=== PATIENT | female | born 1985 | race Native Hawaiian/Other Pacific Islander ===

== ENCOUNTER 2019-02-10 18:04 | Emergency (ER) | payer SELFPAY ==
[2019-02-10 18:19] VITALS: BP 155/92; PULSE 105; TEMP 98.9; BMI 34.9
[2019-02-10] MEDS ORDERED: LIDOCAINE HCL 1%, 10 MG/ML (20ML VIAL) ONE (18:59)
--- NOTE | 2019-02-10 19:33 | PDOC ---
History of Present Illness - General Chief Complaint: Injury Stated Complaint: INJURY Time Seen by Provider: 02/10/19 18:30 History Source: Patient - History of Present Illness Occurred: reports: this afternoon Severity: reports: moderate Pain Location: reports: upper extremity Method of Injury: Yes: direct blow Past History - Past Medical History Allergies/Adverse Reactions: Allergies Allergy/AdvReac Type Severity Reaction Status Date / Time acetaminophen [From Tylenol] Allergy Severe breathing Verified 10/28/13 10:50 problems ibuprofen Allergy Severe breathing Verified 02/10/19 18:20 problems Penicillins Allergy Unknown Verified 02/10/19 18:20 Home Medications: Ambulatory Orders Ciprofloxacin HCl/Dexameth [Ciprodex Otic Suspension] 4 drop AD BID #1 bottle No Home Medications 0 dose .ROUTE UTDICT 10/28/13 COPD: No HTN: Yes (stress induced) - Surgical History Abdominal Surgery: Yes Cholecystectomy: Yes - Suicide/Smoking/Psychosocial Hx Smoking History: Never smoked Review of Systems - Review of Systems Musculoskeletal: Yes: Joint Pain *Physical Exam - Vital Signs Last Vital Signs Temp Pulse Resp BP Pulse Ox 98.9 F 105 H 18 155/92 100 02/10/19 18:16 02/10/19 18:16 02/10/19 18:16 02/10/19 18:16 02/10/19 18:16 - Physical Exam General Appearance: Yes: Appropriately Dressed, Mild Distress HEENT: positive: Normal Voice Neck: positive: Supple Respiratory/Chest: negative: Respiratory Distress Extremity: positive: Other (partial nail avulsion to L 4th digit, no swelling/ deformity or sig ttp to distal phalanx) Integumentary: positive: Dry, Warm Neurologic: positive: Fully Oriented, Alert, Normal Mood/Affect Procedures - Additional Procedures Additional Procedures: other (L 4th fingernail removed s/p digital block w/ ~ 6cc lido with no epi, dressing placed (bacitracin/xeroform/gauze roll)) Medical Decision Making - Medical Decision Making 02/10/19 19:33 33 yo F, no sig hx, here w/ partial nail avulsion s/p finger being slammed in car door today. States pain only located to area of nail See exam Partial nail avulsion Nail removed s/p digital block No finger pain/swelling/deformity to warrant XR at this time Tetanus UTD -dc to wound care instructions -to return as needed *DC/Admit/Observation/Transfer Diagnosis at time of Disposition: Nail avulsion - Discharge Dispostion Disposition: HOME Condition at time of disposition: Good - Referrals - Patient Instructions Printed Discharge Instructions: DI for Nail Avulsion Injury Additional Instructions: You sustained a nail avulsion injury Nails take about 3-6 months to regrow Please folow wound care instructions at home: The digit should be soaked in warm water 24 to 48 hours after the procedure. Before removal of the dressing, patients are instructed to soak their digit in the shower or in a bowl to avoid bleeding and pain when the dressing is removed. A gelatinous film of epithelium may be present over the exposed nail bed and can be gently removed with dilute hydrogen peroxide on a cotton-tipped applicator. The cotton tip should be rolled over the site gently, avoiding rubbing or vigorous attempts at tissue removal. A small amount of petrolatum or antibiotic ointment is placed on the tissue, then it is covered with an adhesive bandage for a simple avulsion or roller gauze if a matricectomy was performed. This dressing change should be repeated daily. The nail bed typically epithelializes within 7 to 10 days. Take motrin for pain as needed Return to ED for signs of infection as discussed in ED - Post Discharge Activity
== END 2019-02-10 19:32 | disposition home or self-care (01) ==
LOC: JERFT 18:04
PROC: 0HDQXZZ Extraction of Finger Nail, External Approach (ICD-10-PCS; principal; 2019-02-10)
DX: S61.305A Unspecified open wound of left ring finger with damage to nail, initial encounter (principal); W23.0XXA Caught, crushed, jammed, or pinched between moving objects, initial encounter; Y93.9 Activity, unspecified; Y92.9 Unspecified place or not applicable; I10 Essential (primary) hypertension; Z88.0 Allergy status to penicillin; Z88.8 Allergy status to other drugs, medicaments and biological substances
CPT/HCPCS: 99281-25

== ENCOUNTER 2019-02-12 17:38 | Emergency (ER) | payer SELFPAY ==
--- NOTE | 2019-02-12 17:40 | PDOC ---
Rapid Medical Evaluation Time Seen by Provider: 02/12/19 17:39 Medical Evaluation: Allergies Allergy/AdvReac Type Severity Reaction Status Date / Time acetaminophen [From Tylenol] Allergy Severe breathing Verified 10/28/13 10:50 problems ibuprofen Allergy Severe breathing Verified 02/10/19 18:20 problems Penicillins Allergy Unknown Verified 02/10/19 18:20 02/12/19 17:39 HPI: L 4th finger nail removal 2 days ago now with pain PE: No gross deficits ORDERS: Nothing Discharge Disposition - Diagnosis Nail avulsion - Referrals - Patient Instructions - Post Discharge Activity
[2019-02-12 17:41] VITALS: BP 155/89; PULSE 83; TEMP 98.1; BMI 34.2
--- NOTE | 2019-02-12 18:26 | PDOC ---
Suture Removal/Wound Check HPI - History of Present Illness Chief Complaint: Injury Stated Complaint: FINGER INJURY Time Seen by Provider: 02/12/19 17:39 [facility] Date of Last ED visit: 02/10/19 - Previous ED Treatment Type of procedure performed on last visit: Yes: Other (nail removal) Tetanus Immunization: Yes: Up to Date - Onset of Previous Treatment Date of Occurence: 02/10/19 Comment:: 02/12/19 18:26 33 yo F returns to fast track for recheck of finger s/p nail removal. Patient slammed her finger in a car door two days ago and was seen her for partial nail avulsion and had fingernail removed and covered with bacitracin/xeroform/gauze. Patient states she has been soaking the finger all day and has been unable to take the dressing off. Digital block performed (verbal consent obtained), dressing removed. Wound covered with bacitracin and band-aid. Advised pt to f/u with specialist for continued monitoring. Past History - Past Medical History Allergies/Adverse Reactions: Allergies Allergy/AdvReac Type Severity Reaction Status Date / Time acetaminophen [From Tylenol] Allergy Severe breathing Verified 02/12/19 17:42 problems ibuprofen Allergy Severe breathing Verified 02/12/19 17:42 problems Penicillins Allergy Unknown Verified 02/12/19 17:42 Home Medications: Ambulatory Orders Ciprofloxacin HCl/Dexameth [Ciprodex Otic Suspension] 4 drop AD BID #1 bottle No Home Medications 0 dose .ROUTE UTDICT 10/28/13 COPD: No HTN: Yes (stress induced) - Surgical History Abdominal Surgery: Yes Cholecystectomy: Yes - Suicide/Smoking/Psychosocial Hx Smoking History: Never smoked Hx Alcohol Use: No Drug/Substance Use Hx: No *Physical Exam - Vital Signs Last Vital Signs Temp Pulse Resp BP Pulse Ox 98.1 F 83 14 155/89 99 02/12/19 17:39 02/12/19 17:39 02/12/19 17:39 02/12/19 17:39 02/12/19 17:39 *DC/Admit/Observation/Transfer Diagnosis at time of Disposition: Nail avulsion - Discharge Dispostion Disposition: HOME Condition at time of disposition: Stable Decision to Admit order: No - Referrals - Patient Instructions Printed Discharge Instructions: DI for Nail Avulsion Injury - Post Discharge Activity
== END 2019-02-12 19:32 | disposition home or self-care (01) ==
LOC: JERFT 17:38
DX: Z48.00 Encounter for change or removal of nonsurgical wound dressing (principal)
CPT/HCPCS: 73140-TC-LT-FY; 99281-25

== ENCOUNTER 2019-05-26 09:47 | Emergency (ER) | payer OTHER ==
[2019-05-26 10:11] VITALS: BP 140/93; PULSE 89; TEMP 97.8
[2019-05-26] MEDS ORDERED: IBUPROFEN 600 MG TABLET (FP) PO ONE (10:31)
--- NOTE | 2019-05-26 11:11 | PDOC ---
History of Present Illness - General Chief Complaint: Respiratory Stated Complaint: DIFFICULTY BREATHING Time Seen by Provider: 05/26/19 10:20 History Source: Patient Exam Limitations: No Limitations Past History - Past Medical History Allergies/Adverse Reactions: Allergies Allergy/AdvReac Type Severity Reaction Status Date / Time acetaminophen [From Tylenol] Allergy Severe breathing Verified 05/26/19 10:06 problems ibuprofen Allergy Severe breathing Verified 05/26/19 10:06 problems Penicillins Allergy Unknown Verified 05/26/19 10:06 Home Medications: Ambulatory Orders D-Methorphan/PE/Acetaminophen [Daytime Cold Relief Caplet] 1 each PO ASDIR 05/26 Fluticasone Prop 0.05% Nasal [Flonase -] 1 - 2 spray NS DAILY #1 spray.pump COPD: No HTN: Yes (stress induced) - Surgical History Abdominal Surgery: Yes Cholecystectomy: Yes - Psycho Social/Smoking Cessation Hx Smoking History: Never smoked Hx Alcohol Use: No Drug/Substance Use Hx: No *Physical Exam - Vital Signs Last Vital Signs Temp Pulse Resp BP Pulse Ox 97.8 F 89 18 140/93 99 05/26/19 10:08 05/26/19 10:08 05/26/19 10:08 05/26/19 10:08 05/26/19 10:08 - Physical Exam General Appearance: No: Apparent Distress HEENT: positive: Nasal Congestion. negative: Pharyngeal Erythema, Tonsillar Exudate, Tonsillar Erythema, Rhinorrhea, Sinus Tenderness Respiratory/Chest: positive: Chest Tender (mild TTP along R lateral ribs), Lungs Clear, Normal Breath Sounds. negative: Respiratory Distress Cardiovascular: positive: Regular Rhythm, Regular Rate, S1, S2. negative: Murmur Gastrointestinal/Abdominal: positive: Normal Bowel Sounds, Soft. negative: Tender, Distended, Guarding, Rebound Musculoskeletal: negative: CVA Tenderness Neurologic: positive: Alert ED Treatment Course - RADIOLOGY Radiology Studies Ordered: Category Date Time Status CHEST PA & LAT [RAD] Stat Radiology 05/26/19 10:31 Completed - Medications Given in the ED: ED Medications Discontinued Medications Generic Name Dose Route Start Last Admin Trade Name Freq PRN Reason Stop Dose Admin Ibuprofen 600 mg 05/26/19 10:31 05/26/19 10:41 Motrin - PO 05/26/19 10:32 600 mg ONCE ONE Administration Medical Decision Making - Medical Decision Making 33 y/o F hx of cholecystectomy presents with productive cough, nasal congestion , postnasal drip and hoarseness from 2 days ago. Also mentions having B/L rib pain, worse with inspiration. Mentions had fever yesterday 1 time, which broke after taking Motrin. Did not take any antipyretics today. Patient is nonsmoker. Denies n/v/d, urinary sxs. Denies recent travel, recent surgeries. Is not on OCPs CXR negative - small nodular density along R base - patient explained of findings Likely viral URI/laryngitis stable for dc 05/26/19 11:06 Discharge - Discharge Information Problems reviewed: Yes Clinical Impression/Diagnosis: Laryngitis Condition: Stable Disposition: HOME - Admission No - Additional Discharge Information Prescriptions: Fluticasone Prop 0.05% Nasal [Flonase -] 1 - 2 spray NS DAILY #1 spray.pump Prescription Drug Monitoring Program (I-STOP) results: I-STOP not reviewed - Follow up/Referral - Patient Discharge Instructions Patient Printed Discharge Instructions: DI for Laryngitis Additional Instructions: Thank you for choosing [facility]. It was a pleasure taking care of you. Recommend rest Drink at least 2L of water daily Do salt water gargles Use Nedi-Pot to help with nasal congestion Use Flonase spray as indicated Follow-up with your doctor in 2 days Return to the Emergency Department if your symptoms worsen or persist or have other concerning symptoms. - Post Discharge Activity
== END 2019-05-26 11:20 | disposition home or self-care (01) ==
LOC: JER 09:47 → JERFT 09:47
DX: J04.0 Acute laryngitis (principal); J06.9 Acute upper respiratory infection, unspecified; B97.89 Other viral agents as the cause of diseases classified elsewhere; I10 Essential (primary) hypertension; Z88.0 Allergy status to penicillin; Z88.6 Allergy status to analgesic agent; Z90.49 Acquired absence of other specified parts of digestive tract
CPT/HCPCS: 71046-TC-FY; 99281-25

== ENCOUNTER 2019-07-23 08:31 | Emergency (ER) | payer OTHER ==
[2019-07-23 08:45] VITALS: BP 119/82; PULSE 90; TEMP 98.4; BMI 27.4
[2019-07-23] MEDS ORDERED: ACETAMINOPHEN 500 MG TABLET (FP) PO ONE (09:46)
[2019-07-23] MEDS ORDERED: ACETAMINOPHEN 325 MG TABLET (FP) ONE (09:49)
--- NOTE | 2019-07-23 10:23 | PDOC ---
History of Present Illness - General Chief Complaint: Cold Symptoms Stated Complaint: COLD SYMPTOMS Time Seen by Provider: 07/23/19 09:32 History Source: Patient Exam Limitations: No Limitations - History of Present Illness Initial Comments: 07/23/19 10:10 34-year-old female with no past medical history of smoking history presents to the ED with complaints of cough, nasal congestion, myalgia and arthralgia. Patient states took Mucinex this morning at around 4 AM with no improvement and so decided come to the ER. Patient states symptoms began Monday morning. Patient denies recent travel recent illness but states 2 children at home with the flu last week along with strep. Is this a multiple visit Asthma Patient?: No Timing/Duration: reports: other Severity: reports: mild Possible Cause: Yes: no prior episodes Modifying Factors: improves with: coughing Associated Symptoms: reports: cough, fever/chills, nasal congestion Past History - Travel Traveled outside of the country in the last 30 days: No Close contact w/someone who was outside of country & ill: No - Past Medical History Allergies/Adverse Reactions: Allergies Allergy/AdvReac Type Severity Reaction Status Date / Time ibuprofen Allergy Severe breathing Verified 05/26/19 10:06 problems Penicillins Allergy Unknown Verified 05/26/19 10:06 Home Medications: Ambulatory Orders D-Methorphan/PE/Acetaminophen [Daytime Cold Relief Caplet] 1 each PO ASDIR 05/26 Fluticasone Prop 0.05% Nasal [Flonase -] 1 - 2 spray NS DAILY #1 spray.pump COPD: No HTN: Yes (stress induced) - Surgical History Abdominal Surgery: Yes Cholecystectomy: Yes - Immunization History Immunization Up to Date: No - Psycho Social/Smoking Cessation Hx Smoking History: Never smoked Have you smoked in the past 12 months: No Information on smoking cessation initiated: No Hx Alcohol Use: No Drug/Substance Use Hx: No Patient Lives Alone: No Lives with/in: spouse/SO Review of Systems - Review of Systems Able to Perform ROS?: Yes Constitutional: Yes: Chills, Fever HEENTM: Yes: Nose Congestion Respiratory: Yes: Cough Cardiac (ROS): No: Symptoms Reported ABD/GI: No: Symptoms Reported Musculoskeletal: Yes: Joint Pain, Muscle Pain Integumentary: No: Symptoms Reported Neurological: No: Headache, Weakness *Physical Exam - Vital Signs Last Vital Signs Temp Pulse Resp BP Pulse Ox 98.4 F 90 18 119/82 99 07/23/19 08:42 07/23/19 08:42 07/23/19 08:42 07/23/19 08:42 07/23/19 08:42 - Physical Exam General Appearance: Yes: Nourished, Appropriately Dressed. No: Apparent Distress HEENT: positive: Pharyngeal Erythema (Mild no exudate 1+ bilaterally uvula midline). negative: Pale Conjunctivae Neck: positive: Supple. negative: Lymphadenopathy (R), Lymphadenopathy (L) Respiratory/Chest: positive: Rhonchi (Coarse breath sounds to left base). negative: Respiratory Distress, Accessory Muscle Use Cardiovascular: positive: Regular Rhythm, Regular Rate. negative: Murmur Gastrointestinal/Abdominal: negative: Distended Extremity: positive: Normal Inspection Integumentary: positive: Normal Color, Warm, Moist Neurologic: positive: Motor Strength 5/5 (Ambulatory) ED Treatment Course - RADIOLOGY Radiology Studies Ordered: Category Date Time Status CHEST PA & LAT [RAD] Stat Radiology 07/23/19 09:46 Taken - Medications Given in the ED: ED Medications Discontinued Medications Generic Name Dose Route Start Last Admin Trade Name Freq PRN Reason Stop Dose Admin Acetaminophen 975 mg 07/23/19 09:46 07/23/19 09:49 Tylenol - PO 07/23/19 09:47 975 mg ONCE ONE Administration Medical Decision Making - Medical Decision Making 07/23/19 10:02 Chief complaint: URI symptoms took Mucinex this a.m. Patient with 2 children earlier last week with strep and flu. Exam: Patient with coarse breath sounds to left base. Otherwise normal vital signs. Plan: Chest x-ray, fluid, strep, and Tylenol ordered 07/23/19 10:58 Chest x-ray negative for acute pathology when compared to previous x-ray on file. We will discharge home with a 3 day dosing of azithromycin for bronchitis. Discharge - Discharge Information Problems reviewed: Yes Clinical Impression/Diagnosis: Bronchitis Condition: Good Disposition: HOME - Follow up/Referral - Patient Discharge Instructions Patient Printed Discharge Instructions: DI for Acute Bronchitis Additional Instructions: Take antibiotic medication as prescribed. Drink plenty of fluids and may take Tylenol for discomfort. Take Robitussin-AC as needed for cough - Post Discharge Activity
== END 2019-07-23 12:08 | disposition home or self-care (01) ==
LOC: JERFT 08:31
DX: J40 Bronchitis, not specified as acute or chronic (principal); I10 Essential (primary) hypertension
CPT/HCPCS: 71046-TC-FY; 99281-25

== ENCOUNTER 2019-12-24 22:25 | Emergency (ER) | payer OTHER ==
[2019-12-24 22:41] VITALS: BP 153/103; PULSE 88; TEMP 98.3; BMI 27.4
[2019-12-24 23:48] LABS: EPI CELLS >36 /uL (0-25.1); HYALINE CASTS 1 /uL (0-3.1); PH,URINE 5.5 (5.0-8.0); URINE APPEARANCE CLOUDY; URINE BACTERIA 64 /uL (0-1359); URINE BILIRUBIN NEGATIVE (NEGATIVE); URINE COLOR RED; URINE GLUCOSE (UA) NEGATIVE (NEGATIVE); URINE KETONE NEGATIVE (NEGATIVE); URINE LEUK ESTERASE 1+ (NEGATIVE); URINE NITRITE NEGATIVE (NEGATIVE); URINE PROTEIN TRACE (NEGATIVE); URINE RBC 5511 /uL (0-23.9); URINE UROBILINOGEN 0.2 mg/dL (0.2-1.0); URINE WBC 83 /uL (0-25.8)
[2019-12-24 23:49] LABS: HCG,QUALITATIVE URINE Negative
[2019-12-25] MEDS ORDERED: ONDANSETRON *ODT* 4 MG TABLET SL ONE (00:17)
== END 2019-12-25 00:28 | disposition home or self-care (01) ==
LOC: JER 22:25
DX: R04.0 Epistaxis (principal); R11.0 Nausea
CPT/HCPCS: 81003; 84703; 99283-25

== ENCOUNTER 2020-01-25 15:35 | Emergency (ER) | payer OTHER ==
[2020-01-25] MEDS ORDERED: ACETAMINOPHEN 500 MG TABLET (FP) PO ONE (15:41)
--- NOTE | 2020-01-25 15:41 | PDOC ---
Rapid Medical Evaluation Chief Complaint: Injury Time Seen by Provider: 01/25/20 15:36 Medical Evaluation: Allergies Allergy/AdvReac Type Severity Reaction Status Date / Time ibuprofen Allergy Severe breathing Verified 12/24/19 22:40 problems Penicillins Allergy Unknown Verified 12/24/19 22:40 01/25/20 15:38 I performed a brief in-person evaluation of this patient. Pt is a 34 y/o female who fell down 4-5 concrete steps in her building and is now complaining of her entire left sided hurting. She denies any LOC. She admits to L foot/ankle pain and hip pain. She admits to her L neck hurting. Pertinent physical exam findings: FROM of the neck, no midline tenderness. L ankle and L hip tenderness to palpation. Pt states she is unable to bear weight since the fall. I have ordered the following: L foot/ankle xray, L hip xray, Tylenol Patient to proceed ton ED for further evaluation. Discharge Disposition - Diagnosis Fall down steps - Referrals - Patient Instructions - Post Discharge Activity
[2020-01-25 15:43] VITALS: BP 142/101; PULSE 100; TEMP 98.3; BMI 34.9
[2020-01-25] MEDS ORDERED: ACETAMINOPHEN 500 MG TABLET (FP) ONE (15:55)
--- NOTE | 2020-01-25 16:26 | PDOC ---
History of Present Illness - General Chief Complaint: Injury Stated Complaint: SLIP AND FALL Time Seen by Provider: 01/25/20 15:36 History Source: Patient Exam Limitations: No Limitations - History of Present Illness Initial Comments: 01/25/20 16:21 34-year-old female presents ED status post injury after falling down the stairs. Patient states went down around 4 steps after slipping on water. Patient states did not hit her head but has pain to the left lower extremity. Occurred: reports: just prior to arrival Severity: reports: mild, moderate Pain Location: reports: lower extremity Method of Injury: Yes: fall Modifying Factors: improves with: None Loss of Consciousness: no loss of consciousness Associated Symptoms (Fall): trouble walking Past History - Travel History Traveled outside of the country in the last 30 days: No - Medical History Allergies/Adverse Reactions: Allergies Allergy/AdvReac Type Severity Reaction Status Date / Time ibuprofen Allergy Severe breathing Verified 01/25/20 15:39 problems Penicillins Allergy Unknown Verified 01/25/20 15:39 Home Medications: Ambulatory Orders D-Methorphan/PE/Acetaminophen [Daytime Cold Relief Caplet] 1 each PO ASDIR 05/26/19 Fluticasone Prop 0.05% Nasal [Flonase -] 1 - 2 spray NS DAILY #1 spray.pump 05/26/19 Azithromycin [Zithromax Tri-Adam (3 DAYS) -] 500 mg PO DAILY #3 tablet 07/23/19 Guaifenesin AC [Robitussin AC] 10 ml PO BID PRN #100 ml MDD 2 07/23/19 COPD: No HTN: Yes (stress induced) - Surgical History Abdominal Surgery: Yes Cholecystectomy: Yes - Immunization History Immunization Up to Date: No - Psycho-Social/Smoking History Patient Lives Alone: No Lives with/in: spouse/SO Smoking History: Never smoked Have you smoked in the past 12 months: No - Substance Abuse Hx (Audit-C & DAST Scrn) How often the patient has a drink containing alcohol: Never Score: In Men: 4 or > Positive; In Women: 3 or > Positive: 0 Screen Result (Pos requires Nsg. Audit-10AR): Negative In the last yr the pt used illegal drug/Rx for NonMed reason: No Score: Yes response is considered Positive: 0 Screen Result (Positive result requires Nsg. DAST-10): Negative Review of Systems - Review of Systems Able to Perform ROS?: No Is the patient limited Irish proficient: No Constitutional: No: Symptoms Reported HEENTM: No: Symptoms Reported Respiratory: No: Symptoms reported Cardiac (ROS): No: Symptoms Reported ABD/GI: No: Symptoms Reported Musculoskeletal: Yes: Joint Pain. No: Joint Swelling Integumentary: Yes: Bruising Neurological: No: Symptoms reported *Physical Exam - Vital Signs Last Vital Signs Temp Pulse Resp BP Pulse Ox 98.3 F 100 H 18 142/101 H 100 01/25/20 15:39 01/25/20 15:39 01/25/20 15:39 01/25/20 15:39 01/25/20 15:39 - Physical Exam General Appearance: Yes: Nourished, Appropriately Dressed. No: Apparent Distre ss Neck: positive: Tender. negative: Supple, Decreased range of motion Vascular Pulses: Doralis-Pedis (L): 2+ Extremity: positive: Normal Capillary Refill, Normal Inspection, Tender (Lateral aspect of left malleolus and fifth metatarsal. Mild point tenderness to left iliac crest. No crepitus ). negative: Normal Range of Motion Integumentary: positive: Warm, Swelling, Ecchymosis Neurologic: positive: Normal Mood/Affect ED Treatment Course - Medications Given in the ED: ED Medications Discontinued Medications Generic Name Dose Route Start Last Admin Trade Name Freq PRN Reason Stop Dose Admin Acetaminophen 1,000 mg 01/25/20 15:41 01/25/20 16:13 Tylenol - PO 01/25/20 15:42 1,000 mg ONCE ONE Administration Medical Decision Making - Medical Decision Making 01/25/20 16:25 Chief complaint: Status post fall with left lower extremity injury. Exam: Patient with tenderness to the lateral aspect of left malleolus otherwise no most PE. Plan: Patient in for hip and ankle foot x-ray. Plan x-rays reviewed no significant finding. Luis F wrap and crutches given. Discharge - Discharge Information Problems reviewed: Yes Clinical Impression/Diagnosis: Left ankle sprain Condition: Good Disposition: HOME - Follow up/Referral Referrals: Lamonte Sweet MD [Staff Physician] - - Patient Discharge Instructions Patient Printed Discharge Instructions: DI for Ankle Sprain Additional Instructions: Elevate your extremity when you are not ambulating. Wear Luis F wrap during the day but remove at night. May apply ice to the affected areas much as you can tolerate for the next 72 hours. May take Motrin or Tylenol every 8 hours to alleviate discomfort and swelling. If no resolution within 7 days and continues to be the same extent of discomfort and swelling please follow-up with referred orthopedist. - Post Discharge Activity Work/Back to School Note: Back to Work
== END 2020-01-25 16:24 | disposition home or self-care (01) ==
LOC: JERFT 15:35 → JER 15:35 → JERFT 16:24
DX: S93.402A Sprain of unspecified ligament of left ankle, initial encounter (principal)
CPT/HCPCS: 73502-TC-LT-FY; 73610-TC-LT-FY; 73630-TC-LT; 99284-25

== ENCOUNTER 2020-12-14 19:41 | Emergency (ER) | payer OTHER ==
[2020-12-14 20:09] VITALS: TEMP 98.3; BMI 34.0
[2020-12-14] MEDS ORDERED: guaiFENesin/CODEINE 10 ML UNIT-DOSE CUPS PO ONE (21:31)
[2020-12-14] MEDS ORDERED: guaiFENesin/CODEINE 5 ML UNIT-DOSE CUPS PO ONE (21:39)
[2020-12-14 22:32] VITALS: BP 151/74; PULSE 86
== END 2020-12-14 21:50 | disposition home or self-care (01) ==
LOC: JER 19:41
DX: J06.9 Acute upper respiratory infection, unspecified (principal); R05 Cough; R09.81 Nasal congestion
CPT/HCPCS: 71046-TC-FY; 99283-25

== ENCOUNTER 2021-03-08 18:28 | Emergency (ER) | payer OTHER ==
[2021-03-08 18:38] VITALS: TEMP 97.6; BMI 35.9
[2021-03-08] MEDS ORDERED: SODIUM CHLORIDE 1,000 ML IV STA (19:07)
[2021-03-08] MEDS ORDERED: LABETALOL HCL 5 MG/1 ML (100MG/20 ML VIAL) IVPUSH ONE (19:08)
[2021-03-08] MEDS ORDERED: METOCLOPRAMIDE HCL INJECTION 10 MG/2 ML VIAL IVPUSH ONE (19:15)
[2021-03-08] MEDS ORDERED: ACETAMINOPHEN 1000 MG/100 ML VIAL (NON FORMULARY) IVPB ONE (19:15)
[2021-03-08] MEDS ORDERED: METOCLOPRAMIDE HCL INJECTION 10 MG/2 ML VIAL ONE (20:10)
[2021-03-08] MEDS ORDERED: ACETAMINOPHEN INJECTION 100 ML IVPB ONE (20:10)
[2021-03-08 20:43] LABS: BASO % 0.4 % (0-2.0); EOS % 3.9 % (0-4.5); HEMATOCRIT 39.1 % (32.4-45.2); HEMOGLOBIN 12.8 GM/dL (10.7-15.3); LYMPH % 32.2 % (8-40); MCH 22.9 pg (25.7-33.7); MCHC 32.8 g/dl (32.0-36.0); MONO % 7.5 % (3.8-10.2); PLATELET COUNT 282 10^3/uL (134-434); RBC 5.61 M/mm3 (3.60-5.2); RDW 13.7 % (11.6-15.6)
[2021-03-08 20:44] LABS: EPI CELLS 14 /uL (0-25.1); HYALINE CASTS 0 /uL (0-3.1); PH,URINE 5.5 (5.0-8.0); URINE APPEARANCE CLEAR; URINE BACTERIA 759 /uL (0-1359); URINE BILIRUBIN NEGATIVE (NEGATIVE); URINE COLOR YELLOW; URINE GLUCOSE (UA) NEGATIVE (NEGATIVE); URINE KETONE NEGATIVE (NEGATIVE); URINE LEUK ESTERASE TRACE (NEGATIVE); URINE NITRITE NEGATIVE (NEGATIVE); URINE PROTEIN NEGATIVE (NEGATIVE); URINE UROBILINOGEN 0.2 mg/dL (0.2-1.0); URINE WBC 48 /uL (0-25.8)
[2021-03-08 20:59] LABS: MEAN CELL VOLUME 69.7 fl (80-96)
[2021-03-08 21:08] LABS: CHLORIDE 100 mmol/L (98-107); SODIUM 139 mmol/L (136-145)
[2021-03-08 21:10] LABS: CALCIUM 9.1 mg/dL (8.5-10.1)
[2021-03-08 21:11] LABS: ALBUMIN 3.7 g/dl (3.4-5.0); ANION GAP 8 MMOL/L (8-16); BLOOD UREA NITROGEN 20.8 mg/dL (7-18); CO2 31 mmol/L (21-32); GLUCOSE,RANDOM 133 mg/dL (74-106)
[2021-03-08 21:14] LABS: CREATININE 0.9 mg/dL (0.55-1.3); SGOT/AST 25 U/L (15-37); SGPT/ALT 43 U/L (13-61)
[2021-03-08 21:15] LABS: BILIRUBIN,TOTAL 0.2 mg/dL (0.2-1); TOT PROT 7.9 g/dl (6.4-8.2)
[2021-03-08 21:17] LABS: ALK PHOS 85 U/L (45-117)
[2021-03-08 22:19] VITALS: BP 132/78; PULSE 87
[2021-03-08 23:43] LABS: URINE CRYSTALS MANY /hpf; URINE RBC 55.9 /uL (0-23.9)
== END 2021-03-08 22:10 | disposition home or self-care (01) ==
LOC: JER 18:28
PROC: 3E0333Z Introduction of Anti-inflammatory into Peripheral Vein, Percutaneous Approach (ICD-10-PCS; principal; 2021-03-08)
PROC: 3E033GC Introduction of Other Therapeutic Substance into Peripheral Vein, Percutaneous Approach (ICD-10-PCS; 2021-03-08)
PROC: 3E033GC Introduction of Other Therapeutic Substance into Peripheral Vein, Percutaneous Approach (ICD-10-PCS; 2021-03-08)
PROC: 3E0337Z Introduction of Electrolytic and Water Balance Substance into Peripheral Vein, Percutaneous Approach (ICD-10-PCS; 2021-03-08)
DX: N30.00 Acute cystitis without hematuria (principal); I10 Essential (primary) hypertension
CPT/HCPCS: 36415; 80053; 81003; 82550; 82553; 83735; 84484; 85025; 87086; 87186; 93005; 93010; 99284-25; C9803; J0131; U0003; U0005

== ENCOUNTER 2021-05-12 18:17 | Emergency (ER) | payer OTHER ==
[2021-05-12 18:37] VITALS: TEMP 98.5; BMI 34.0
[2021-05-12 20:46] LABS: BASO % 0.5 % (0-2.0); EOS % 4.1 % (0-4.5); HEMATOCRIT 40.2 % (32.4-45.2); HEMOGLOBIN 12.9 GM/dL (10.7-15.3); MCH 22.1 pg (25.7-33.7); MCHC 32.2 g/dl (32.0-36.0); MEAN CELL VOLUME 68.8 fl (80-96); MEAN PLT VOLUME 8.7 fl (7.5-11.1); MONO % 5.6 % (3.8-10.2); NEUT % 57.8 % (42.8-82.8); PLATELET COUNT 284 10^3/uL (134-434); RBC 5.84 M/mm3 (3.60-5.2); RDW 13.4 % (11.6-15.6); WHITE BLOOD COUNT 9.1 K/mm3 (4.0-10.0)
[2021-05-12 20:56] LABS: ADD RBC MORPHOLOGY YES
[2021-05-12 21:01] LABS: CHLORIDE 102 mmol/L (98-107); SODIUM 136 mmol/L (136-145)
[2021-05-12 21:03] LABS: CALCIUM 9.8 mg/dL (8.5-10.1)
[2021-05-12 21:04] LABS: ALBUMIN 3.9 g/dl (3.4-5.0); ANION GAP 7 MMOL/L (8-16); BLOOD UREA NITROGEN 19.4 mg/dL (7-18); CO2 27 mmol/L (21-32); GLUCOSE,RANDOM 133 mg/dL (74-106)
[2021-05-12 21:07] LABS: CREATININE 0.8 mg/dL (0.55-1.3); SGOT/AST 26 U/L (15-37); SGPT/ALT 48 U/L (13-61)
[2021-05-12 21:09] LABS: BILIRUBIN,TOTAL 0.3 mg/dL (0.2-1); TOT PROT 8.2 g/dl (6.4-8.2)
[2021-05-12 21:10] LABS: ALK PHOS 87 U/L (45-117)
[2021-05-12 21:17] LABS: MACROCYTOSIS 0
[2021-05-12] MEDS ORDERED: SODIUM CHLORIDE 0.9% 500 ML INFUS.BAG IV ONE (21:44)
[2021-05-12] MEDS ORDERED: ACETAMINOPHEN 325 MG TABLET (FP) PO ONE (21:44)
[2021-05-12 21:50] LABS: URINE APPEARANCE CLEAR; URINE BILIRUBIN NEGATIVE (NEGATIVE); URINE COLOR YELLOW; URINE GLUCOSE (UA) NEGATIVE (NEGATIVE); URINE KETONE NEGATIVE (NEGATIVE); URINE LEUK ESTERASE NEGATIVE (NEGATIVE); URINE NITRITE NEGATIVE (NEGATIVE); URINE PROTEIN NEGATIVE (NEGATIVE); URINE UROBILINOGEN 0.2 mg/dL (0.2-1.0)
[2021-05-12] MEDS ORDERED: ACETAMINOPHEN 325 MG TABLET (FP) ONE (21:50)
[2021-05-12 22:28] VITALS: BP 165/110; PULSE 80
== END 2021-05-12 22:29 | disposition home or self-care (01) ==
LOC: JER 18:17
DX: R07.9 Chest pain, unspecified (principal); M79.605 Pain in left leg
CPT/HCPCS: 36415; 71045-TC-FY; 80053; 81003; 82550; 82553; 84484; 84702; 84703; 85025; 85379; 93005; 93010; 93971-TC; 99285-25

== ENCOUNTER 2021-11-30 22:54 | Emergency (ER) | payer OTHER ==
[2021-11-30 23:03] VITALS: BP 136/86; PULSE 90; TEMP 98.3; BMI 39.2
== END 2021-12-01 00:25 | disposition left against medical advice (07) ==
LOC: JER 22:54
DX: R07.9 Chest pain, unspecified (principal)
CPT/HCPCS: 93005; 93010; 99281-25

== ENCOUNTER 2021-12-01 18:34 | Emergency (ER) | payer OTHER ==
[2021-12-01 18:46] VITALS: BP 135/89; PULSE 86; TEMP 97.4; BMI 39.6
[2021-12-01] MEDS ORDERED: ACETAMINOPHEN 325 MG TABLET (FP) PO ONE (20:34)
[2021-12-01] MEDS ORDERED: ACETAMINOPHEN 325 MG TABLET (FP) ONE (20:38)
[2021-12-01] MEDS ORDERED: FAMOTIDINE 20 MG/50 ML IVPB 20 MG/50 ML MG IVPB ONE ×2 (21:46→21:58)
[2021-12-01] MEDS ORDERED: SODIUM CHLORIDE 0.9% 500 ML INFUS.BAG IV ONE (21:46)
[2021-12-01 21:50] LABS: BASO % 0.3 % (0-2.0); HEMATOCRIT 37.9 % (32.4-45.2); HEMOGLOBIN 12.2 GM/dL (10.7-15.3); LYMPH % 31.8 % (8-40); MCH 22.4 pg (25.7-33.7); MCHC 32.1 g/dl (32.0-36.0); MEAN CELL VOLUME 69.8 fl (80-96); MEAN PLT VOLUME 8.7 fl (7.5-11.1); MONO % 7.6 % (3.8-10.2); NEUT % 54.3 % (42.8-82.8); PLATELET COUNT 260 10^3/uL (134-434); RBC 5.43 M/mm3 (3.60-5.2); RDW 13.2 % (11.6-15.6); WHITE BLOOD COUNT 8.9 K/mm3 (4.0-10.0)
[2021-12-01 22:09] LABS: CALCIUM 9.4 mg/dL (8.5-10.1)
[2021-12-01 22:10] LABS: ALBUMIN 3.7 g/dl (3.4-5.0); BLOOD UREA NITROGEN 20.8 mg/dL (7-18)
[2021-12-01 22:13] LABS: CREATININE 0.6 mg/dL (0.55-1.3)
[2021-12-01 22:14] LABS: BILIRUBIN,TOTAL 0.3 mg/dL (0.2-1); TOT PROT 7.8 g/dl (6.4-8.2)
== END 2021-12-01 23:47 | disposition left against medical advice (07) ==
LOC: JER 18:34
PROC: 3E033GC Introduction of Other Therapeutic Substance into Peripheral Vein, Percutaneous Approach (ICD-10-PCS; principal; 2021-12-01)
DX: R07.9 Chest pain, unspecified (principal); R10.12 Left upper quadrant pain
CPT/HCPCS: 36415; 71046-TC-FY; 80053; 83690; 84484; 85025; 93005; 93010; 99285-25

== ENCOUNTER 2022-09-13 05:04 | Day surgery (SDC) | payer OTHER ==
[2022-09-12 12:18] VITALS: BMI 41.5
[~2022-09-13 05:04] MED LIST: DICYCLOMINE HCL 20 MG TABLET PO ONE
[2022-09-13 12:20] VITALS: TEMP 96
[2022-09-13 16:32] VITALS: BP 138/87; PULSE 74; RESP 17
== END 2022-09-13 16:32 | disposition home or self-care (01) ==
LOC: JASU-ENDO 05:04
PROVIDERS: ATTEND Student in an Organized Health Care Education/Training Program
PROC: 0DB78ZX Excision of Stomach, Pylorus, Via Natural or Artificial Opening Endoscopic, Diagnostic (ICD-10-PCS; 2022-09-13)
PROC: 0DB68ZX Excision of Stomach, Via Natural or Artificial Opening Endoscopic, Diagnostic (ICD-10-PCS; 2022-09-13)
PROC: 0DB28ZX Excision of Middle Esophagus, Via Natural or Artificial Opening Endoscopic, Diagnostic (ICD-10-PCS; 2022-09-13)
PROC: 0DB38ZX Excision of Lower Esophagus, Via Natural or Artificial Opening Endoscopic, Diagnostic (ICD-10-PCS; principal; 2022-09-13 17:00)
DX: K29.50 Unspecified chronic gastritis without bleeding (principal); K21.00 Gastro-esophageal reflux disease with esophagitis, without bleeding
CPT/HCPCS: 71045-TC-FY; 81025; 82962; 88305-TC; 88342-TC

== ENCOUNTER 2022-09-15 13:27 | Emergency (ER) | payer OTHER ==
[2022-09-15 13:41] VITALS: BP 156/93; PULSE 92; RESP 16; TEMP 97.7; BMI 34.9
[2022-09-15] MEDS ORDERED: MAG HYDROX/AL HYDROX/SIMETH 30 ML UNIT-DOSE CUP PO ONE (14:03)
[2022-09-15] MEDS ORDERED: FAMOTIDINE 20 MG/50 ML IVPB 20 MG/50 ML MG IVPB ONE ×2 (14:03→14:55)
[2022-09-15] MEDS ORDERED: ACETAMINOPHEN 1000 MG/100 ML BAG IVPB ONE (14:03)
[2022-09-15] MEDS ORDERED: METOCLOPRAMIDE HCL INJECTION 10 MG/2 ML VIAL IVPUSH ONE (14:11)
[2022-09-15] MEDS ORDERED: LACTATED RINGERS SOLUTION 1,000 ML/1,000 ML INFUS.BAG IV SCH (14:15)
[2022-09-15] MEDS ORDERED: METOCLOPRAMIDE HCL INJECTION 10 MG/2 ML VIAL ONE (14:54)
[2022-09-15] MEDS ORDERED: ACETAMINOPHEN INJECTION 100 ML IVPB ONE (14:55)
[2022-09-15] MEDS ORDERED: MAG HYDROX/AL HYDROX/SIMETH 30 ML UNIT-DOSE CUP ONE (14:55)
[2022-09-15 15:44] LABS: HEMATOCRIT 40.2 % (32.4-45.2); HEMOGLOBIN 12.6 GM/dL (10.7-15.3); MCH 21.8 pg (25.7-33.7); MCHC 31.3 g/dl (32.0-36.0); MEAN CELL VOLUME 69.6 fl (80-96); MEAN PLT VOLUME 8.7 fl (7.5-11.1); PLATELET COUNT 274 10^3/uL (134-434); RBC 5.77 M/mm3 (3.60-5.2); RDW 13.6 % (11.6-15.6)
[2022-09-15 16:07] LABS: CALCIUM 9.1 mg/dL (8.5-10.1)
[2022-09-15 16:08] LABS: ALBUMIN 3.5 g/dl (3.4-5.0); BLOOD UREA NITROGEN 16.7 mg/dL (7-18)
[2022-09-15 16:11] LABS: CREATININE 0.7 mg/dL (0.55-1.3)
[2022-09-15 16:12] LABS: BILIRUBIN,TOTAL 0.3 mg/dL (0.2-1); TOT PROT 7.4 g/dl (6.4-8.2)
[2022-09-15] MEDS ORDERED: SUCRALFATE 1 GM TABLET (FP) PO ONE (19:08)
== END 2022-09-15 19:30 | disposition home or self-care (01) ==
LOC: JER 13:27
PROC: 3E033GC Introduction of Other Therapeutic Substance into Peripheral Vein, Percutaneous Approach (ICD-10-PCS; principal; 2022-09-15)
DX: R10.13 Epigastric pain (principal)
CPT/HCPCS: 36415; 74177-TC; 80053; 83605; 83690; 84478; 84703; 85027; 93005; 93010; 99285-25